=== PATIENT | female | born 1980 | race Asian ===

== ENCOUNTER 2016-05-28 09:34 | Emergency (ER) | payer OTHER ==
[2016-05-28 09:49] VITALS: TEMP 98.6; O2SAT 98
--- NOTE | 2016-05-28 10:04 | EDPHY ---
H & P Time Seen by Provider: 05/28/16 09:56 HPI/ROS: CHIEF COMPLAINT: Left thumb laceration HISTORY OF PRESENT ILLNESS: 35-year-old [id number] female with out-of- date tetanus works as a planning manager sustained accidental skin avulsion distal left thumb this morning when cutting vegetables. No paresthesia no foreign body sensation PHYSICAL EXAM (Prior to examination, patient consented to physical exam, hands were washed and my usual and customary physical exam procedures followed) 1) GENERAL: Well-developed, well-nourished, alert and oriented. 2) HEAD: Normocephalic 3) HEENT: sclera anicteric 4) LUNGS: Breathing comfortably. 5) SKIN: Left distal thumb superficial skin avulsion. No signs of infection. Negative kanavel sign. Hemostatic. The flap of tissue has viable tissue. 6) MUSCULOSKELETAL: flexion extension intact no deficits. Smoking Status: Never smoked Constitutional: Initial Vital Signs Temperature (C) 37 C 05/28/16 09:47 Heart Rate 64 05/28/16 09:47 Respiratory Rate 17 05/28/16 09:47 Blood Pressure 112/80 05/28/16 09:47 O2 Sat (%) 98 05/28/16 09:47 O2 Delivery Mode Room Air Allergies/Adverse Reactions: No Known Allergies Allergy (Unverified 05/28/16 09:47) Home Medications: Medication Instructions Recorded NK [No Known Home Meds] 05/28/16 MDM/Departure - MDM Procedures: Procedure: Laceration repair. I explained the indications, risks and benefits for both laceration repair and anesthetic administration. Verbal consent was obtained from the patient . The laceration on the left thumb was anesthetized using 0.5% bupivicaine without epinephrine digital nerve block. After anesthetic administered the patient was observed for a period of time and had no apparent adverse effects. The wound was cleaned, prepped, draped in normal sterile fashion and explored to its base. No foreign body seen, no foreign bodies palpated. There were no deep structures involved. The flap was tacked down with 3 simple interrupted 5 O Prolene sutures . The wound repair was simple. The procedure was performed by myself. Patient has been informed that scarring will occur, although efforts have been made to minimize this. - Depart Disposition: Home, Routine, Self-Care Clinical Impression: Less thumb skin avulsion Laceration of thumb Qualifiers: Encounter type: initial encounter Laterality: left Qualifier Code: (S61.012A) Laceration without foreign body of left thumb without damage to nail, initial encounter Condition: Good Instructions: Skin Avulsion (ED), Laceration (ED), Care For Your Stitches (ED) Additional Instructions: Return to the ER if you develop redness, swelling, discharge, warmth to the wound, red streaks going up your arm , or any other symptoms that concern you. Stand Alone Forms: Work Comp Follow Up Referrals: Follow-up, with your work comp provider in 3 days [Other] - As per Instructions Return, to the ER in 10 days for suture removal [Other] - As per Instructions
[2016-05-28 11:16] VITALS: BP 128/70; PULSE 72; RESP 16
== END 2016-05-28 11:16 | disposition home or self-care (01) ==
PROC: 0HQGXZZ Repair Left Hand Skin, External Approach (ICD-10-PCS; principal; 2016-05-28)
DX: S61.012A Laceration without foreign body of left thumb without damage to nail, initial encounter (principal); W26.9XXA Contact with unspecified sharp object(s), initial encounter; Y93.89 Activity, other specified